=== PATIENT | female | born 1990 | race Caucasian/White ===

== ENCOUNTER 2016-10-13 02:01 | Emergency (ER) | payer OTHER, MEDICAID ==
--- NOTE | 2016-10-13 02:28 | ED Physician Chart ---
Chief Complaint/HPI - Patient Information Date Seen:: 10/13/16 Time Seen:: 02:10 Chief Complaint:: rash History of Present Illness:: THIS IS A 26 YO FEMALE WHO STATES THAT SHE HAS AN ALLERGIC RASH OVER HER BODY SHE THINKS THAT IT IS EXPOSURE FOR A NEW DOG THAT SHE BOUGHT IN TO THE HOUSE YESTERDAY. SHE DENIES SHORTNESS OF BREATH, TROUBLE SWOLLOWING. SHE DENIES NAUSEA AND VOMITING. SHE DENIES FEVER, COUGH AND CHEST CONGESTION. SHE STATES THAT THIS HAS HAPPEN BEFORE. Allergies:: Allergies Allergy/AdvReac Type Severity Reaction Status Date / Time dogs Allergy Uncoded 10/13/16 02:11 Vitals:: Vital Signs - 8 hr 10/13/16 02:05 Temp 98.3 F HR 95 RR 18 BP 123/73 O2 Sat % 100 Historian:: Patient Review:: Nurse's Note Reviewed Review of Systems - Review of Systems General/Constitutional: No fever, No chills, No weight loss, No weakness, No diaphoresis, No edema, No loss of appetite Skin: No skin lesions, Rash, No bruising Head: No headache, No light-headedness Eyes: No loss of vision, No pain, No diplopia ENT: No earache, No nasal drainage, No sore throat, No tinnitus Neck: No neck pain, No swelling, No thyromegaly, No stiffness, No mass noted Cardio Vascular: No chest pain, No palpitations, No PND, No orthopnea, No edema Pulmonary: No SOB, No cough, No sputum, No wheezing GI: No nausea, No vomiting, No diarrhea, No pain, No melena, No hematochezia, No constipation, No hematemesis G/U: No dysuria, No frequency, No hematuria Musculoskeletal: No bone or joint pain, No back pain, No muscle pain Endocrine: No polyuria, No polydipsia Psychiatric: No prior psych history, No depression, No anxiety, No suicidal ideation Hematopoietic: No bruising, No lymphadenopathy Allergic/Immuno: No urticaria, No angioedema Neurological: No syncope, No focal symptoms, No weakness, No paresthesia, No headache, No seizure, No dizziness, No confusion, No vertigo Past Medical History - Past Medical History Obtainable: Yes Past Medical History: Other (OBESE) Family History: None Social History: Non Smoker, No Alcohol, No Drug Use, Employed, Other Surgical History: None Psychiatricy History: None Medication: Reviewed Family Medical History - Family Member Mother History Unknown: Yes Grandmother History Unknown: Yes Hx Family Diabetes: Yes Physical Exam - Physical Examination General/Constitutional: Awake, Well-developed, well-nourished, Alert, No distress, GCS 15, Non-toxic appearing, Ambulatory Head: Atraumatic Eyes: Lids, conjuctiva normal, PERRL, EOMI Skin: Nl inspection, No skin lesions, No ecchymosis, Well hydrated, No lymphadenopathy Other Skin comments:: THE IS A GENERALIZED RASH OVER THE BODY BUT ESPECIALLY THE FACE. ENMT: External ears, nose nl, Nasal exam nl, Lips, teeth, gums nl Neck: Nontender, Full ROM w/o pain, No JVD, No nuchal rigidity, No bruit, No mass, No stridor Respiratory: Nl effort/Exclusion, Clear to Auscultation, No Wheeze/Rhonchi/Rales Cardio Vascular: RRR, No murmur, gallop, rubs, NL S1 S2 GI: No tenderness/rebounding/guarding, No organomegaly, No hernia, Normal BS's, Nondistended, No mass/bruits, No McBurney tenderness : No CVA tenderness Extremities: No tenderness or effusion, Full ROM, normal strength in all extremities, No edema, Normal digits & nails Neuro/Psych: Alert/oriented, DTR's symmetric, Normal sensory exam, Normal motor strength, Judgement/insight normal, Mood normal, Normal gait, No focal deficits Misc: normal gait, Normal back, No paraspinal tenderness ED Septic Shock - . Is Septic Shock (SBP<90, OR Lactate>4 mmol\L) present?: No - <6hrs of presentation: Vital Signs: Vital Signs - 8 hr 10/13/16 02:05 Temp 98.3 F HR 95 RR 18 BP 123/73 O2 Sat % 100 Reassessment (Disposition) - Reassessment Reassessment Condition:: Improved - Diagnosis Diagnosis:: ACUTE UTICARIAL RASH - Aftercare/Follow up Instructions Aftercare/Follow-Up Instructions:: Counseled pt regarding lab results/diagnosis & need follow up, Refer to Discharge Instructions, Counseled pt & family regarding lab results/diagnosis & need follow up - Patient Disposition Discharge/Transfer:: Home Condition at Disposition:: Improved ED Discharge Plan - Patient Disposition Admit/Discharge/Transfer: PT DISCHARGED HOME Condition at Disposition: Improved
== END 2016-10-13 02:40 | disposition home or self-care (01) ==
LOC: ER 02:01
DX: L50.0 Allergic urticaria (principal); J30.81 Allergic rhinitis due to animal (cat) (dog) hair and dander
CPT/HCPCS: 99283; 96372; J2930; Z7502

== ENCOUNTER 2017-07-15 15:14 | Emergency (ER) | payer MEDICAID, OTHER | END 2017-07-15 18:25 | disposition left against medical advice (07) | LOC: ER 15:14 | DX: R19.7 Diarrhea, unspecified (principal); Z91.09 Other allergy status, other than to drugs and biological substances ==

== ENCOUNTER 2018-06-15 22:41 | Emergency (ER) | payer MEDICAID, OTHER ==
--- NOTE | 2018-06-15 23:38 | ED Physician Chart ---
ED Chief Complaint/HPI - Patient Information Date Seen:: 06/15/18 Time Seen:: 23:33 Chief Complaint:: Nausea, vomiting and diarrhea History of Present Illness:: 28 yo female developed nausea, vomiting, diarrhea and epigastric abdominal pain for 12 hours right after eating a pizza. Patient also had fever up to 100.5, chills and body ache. Allergies:: Allergies Allergy/AdvReac Type Severity Reaction Status Date / Time dogs Allergy Uncoded 10/13/16 02:11 Vitals:: Vital Signs - 8 hr 06/15/18 22:45 Temp 96.8 F HR 124 RR 19 BP 118/71 O2 Sat % 96 ED Review of Systems - Review of Systems General/Constitutional: Fever, Chills Skin: No rash Head: No headache Eyes: No pain ENT: No nasal drainage Neck: No neck pain Cardio Vascular: No chest pain Pulmonary: No SOB GI: Nausea, Vomiting, Diarrhea, Pain Musculoskeletal: Muscle pain Neurological: No focal symptoms ED Past Medical History - Past Medical History Past Medical History: DM, Asthma/COPD, Other (Obesity) Social History: Non Smoker, Alcohol, No Drug Use Surgical History: Cholecystectomy, () Family Medical History - Family Member Mother History Unknown: Yes Ethnicity: Living Status: Still Living Hx Family Cancer: No Hx Family Coronary Artery Disease: No Hx Family Congestive Heart Failure: No Hx Family Hypertension: Yes Hx Family Dementia: No Hx Family HIV: No Hx Family COPD: No Hx Family Hepatitis: No Grandmother History Unknown: Yes Ethnicity: Hx Family Cancer: No Hx Family Coronary Artery Disease: No Hx Family Congestive Heart Failure: No Hx Family Hypertension: No Hx Family Stroke: No Hx Family Diabetes: Yes Hx Family Seizures: No Hx Family Dementia: No Hx Family AIDS: No Hx Family COPD: No Hx Family Hepatitis: No Hx Family Psychiatric Problems: No ED Physical Exam - Physical Examination General/Constitutional: Awake, Alert Head: Atraumatic Eyes: PERRL, EOMI Skin: No skin lesions ENMT: Nasal exam nl Neck: No nuchal rigidity Respiratory: Clear to Auscultation Cardio Vascular: RRR, No murmur, gallop, rubs, NL S1 S2 Other GI comments:: Epigastric tenderness Extremities: normal strength in all extremities Neuro/Psych: Alert/oriented ED Labs/Radiology/EKG Results - Lab Results Results: Laboratory Last Values WBC 9.7 Th/cmm (4.8-10.8) 06/15/18 23:40 RBC 4.76 Mil/cmm (3.80-5.10) 06/15/18 23:40 Hgb 14.3 gm/dL (12-16) 06/15/18 23:40 Hct 42.7 % (41.0-60) 06/15/18 23:40 MCV 89.7 fl (81-100) 06/15/18 23:40 MCH 30.0 pg (27.0-31.0) 06/15/18 23:40 MCHC Differential 33.5 pg (28.0-36.0) 06/15/18 23:40 RDW 11.4 % (11.5-20.0) L 06/15/18 23:40 Plt Count 328 Th/cmm (150-400) 06/15/18 23:40 MPV 8.6 fl 06/15/18 23:40 Neutrophils % 79.5 % (40.0-80.0) 06/15/18 23:40 Lymphocytes % 12.7 % (20.0-50.0) L 06/15/18 23:40 Monocytes % 4.6 % (2.0-10.0) 06/15/18 23:40 Eosinophils % 2.4 % (0.0-5.0) 06/15/18 23:40 Basophils % 0.8 % (0.0-2.0) 06/15/18 23:40 Sodium 134 mEq/L (136-145) L 06/15/18 23:40 Potassium 3.5 mEq/L (3.5-5.1) 06/15/18 23:40 Chloride 100 mEq/L (98-107) 06/15/18 23:40 Carbon Dioxide 22.1 mEq/L (21.0-31.0) 06/15/18 23:40 Anion Gap 15.4 (7.0-16.0) 06/15/18 23:40 BUN 12 mg/dL (7-25) 06/15/18 23:40 Creatinine 0.5 mg/dL (0.6-1.2) L 06/15/18 23:40 Est GFR ( Amer) > 60.0 ml/min (>90) 06/15/18 23:40 Est GFR (Non-Af Amer) > 60.0 ml/min 06/15/18 23:40 BUN/Creatinine Ratio 24.0 06/15/18 23:40 Glucose 209 mg/dL (70-105) H 06/15/18 23:40 Calcium 9.3 mg/dL (8.6-10.3) 06/15/18 23:40 Total Bilirubin 0.7 mg/dL (0.3-1.0) 06/15/18 23:40 AST 49 U/L (13-39) H 06/15/18 23:40 ALT 50 U/L (7-52) 06/15/18 23:40 Alkaline Phosphatase 56 U/L (34-104) 06/15/18 23:40 Total Protein 7.4 gm/dL (6.0-8.3) 06/15/18 23:40 Albumin 3.9 gm/dL (3.7-5.3) 06/15/18 23:40 Globulin 3.5 gm/dL 06/15/18 23:40 Albumin/Globulin Ratio 1.1 (1.0-1.8) 06/15/18 23:40 Lipase 16 U/L (11-82) 06/15/18 23:40 Urine Source RANDOM 06/15/18 22:55 Urine Color YELLOW 06/15/18 22:55 Urine Clarity CLEAR (CLEAR) 06/15/18 22:55 Urine pH 6.0 (4.6 - 8.0) 06/15/18 22:55 Ur Specific [place] 1.025 (1.005-1.030) 06/15/18 22:55 Urine Protein TRACE mg/dL (NEGATIVE) 06/15/18 22:55 Urine Glucose (UA) 250 mg/dL (NEGATIVE) H 06/15/18 22:55 Urine Ketones 15 mg/dL (NEGATIVE) H 06/15/18 22:55 Urine Blood NEGATIVE (NEGATIVE) 06/15/18 22:55 Urine Nitrate NEGATIVE (NEGATIVE) 06/15/18 22:55 Urine Bilirubin NEGATIVE (NEGATIVE) 06/15/18 22:55 Urine Urobilinogen 0.2 E.U./dL (0.2 - 1.0) 06/15/18 22:55 Ur Leukocyte Esterase NEGATIVE (NEGATIVE) 06/15/18 22:55 Urine RBC 0-2 /hpf (0-5) 06/15/18 22:55 Urine WBC 0-2 /hpf (0-5) 06/15/18 22:55 Ur Epithelial Cells MODERATE /lpf (FEW) 06/15/18 22:55 Urine Bacteria MODERATE /hpf (NONE SEEN) H 12 22:55 Urine Test NEGATIVE 06/15/18 22:55 ED Assessment - Assessment General Assessment: Gastroenteritis Dehydration Hyponatremia Assessment/Comments:: CBC, CMP, lipase Zofran 4mg IV Pantoprazole 40mg IV Ciprofloxacin 400mg IV NS 1L IV bolus D/c home F/u PCP or return to ER if symptoms worsen ED Septic Shock - . Is Septic Shock (SBP<90, OR Lactate>4 mmol\L) present?: No - <6hrs of presentation: Vital Signs: Vital Signs - 8 hr 06/15/18 22:45 Temp 96.8 F HR 124 RR 19 BP 118/71 O2 Sat % 96 ED Reassessment (Disposition) - Reassessment Reassessment Condition:: Improved - Aftercare/Follow up Instructions Medication Prescribed:: Ciprofloxacin 500mg PO bid #14 Zofran ODT 4mg PO q8h prn for N/V, #6 - Patient Disposition Discharge/Transfer:: Home
[2018-06-16 00:06] LABS: % BASOPHILS 0.8 % (0.0-2.0); % EOSINOPHILS 2.4 % (0.0-5.0); % LYMPHOCYTES 12.7 % (20.0-50.0); % MONOCYTES 4.6 % (2.0-10.0); % NEUTROPHILS 79.5 % (40.0-80.0); BASOPHILE ABSOLUTE 0.1 Th/cumm (0-0.2); EOSINOPHILE ABSOLUTE 0.2 Th/cmm (0.1-0.4); HEMATOCRIT 42.7 % (41.0-60); HEMOGLOBIN 14.3 gm/dL (12-16); LYMPHOCYTE ABSOLUTE 1.2 Th/cmm (1.5-3.0); MEAN CELL VOLUME 89.7 fl (81-100); MEAN CORPUSCULAR HGB CONC 33.5 pg (28.0-36.0); MEAN PLATELET VOLUME 8.6 fl; MONOCYTE ABSOLUTE 0.4 Th/cmm (0.3-1.0); NEUTROPHILE ABSOLUTE 7.8 Th/cmm (1.8-8.0); PLATELET COUNT 328 Th/cmm (150-400); RED BLOOD COUNT 4.76 Mil/cmm (3.80-5.10); RED CELL DISTRIBUTION WIDTH 11.4 % (11.5-20.0); WHITE BLOOD COUNT 9.7 Th/cmm (4.8-10.8)
[2018-06-16 00:15] LABS: URINE SOURCE RANDOM
[2018-06-16 00:18] LABS: URINE BILIRUBIN NEGATIVE (NEGATIVE); URINE BLOOD NEGATIVE (NEGATIVE); URINE GLUCOSE (UA) 250 mg/dL (NEGATIVE); URINE KETONE 15 mg/dL (NEGATIVE); URINE LEUKOCYTE ESTERASE NEGATIVE (NEGATIVE); URINE MICROSCOPIC INDICATED? YES; URINE NITRATE NEGATIVE (NEGATIVE); URINE PROTEIN TRACE mg/dL (NEGATIVE); URINE UROBILINOGEN 0.2 E.U./dL (0.2 - 1.0)
[2018-06-16 00:19] LABS: ALB/GLOB RATIO 1.1 (1.0-1.8); ALBUMIN 3.9 gm/dL (3.7-5.3); ALKALINE PHOSPHATASE 56 U/L (34-104); ANION GAP 15.4 (7.0-16.0); BILIRUBIN,TOTAL 0.7 mg/dL (0.3-1.0); BUN - UREA NITROGEN 12 mg/dL (7-25); CALCIUM SERUM 9.3 mg/dL (8.6-10.3); CARBON DIOXIDE 22.1 mEq/L (21.0-31.0); CHLORIDE 100 mEq/L (98-107); CREATININE - SERUM 0.5 mg/dL (0.6-1.2); GFR AFRICAN-AMERICAN > 60.0 ml/min (>90); GFR NON AFRICAN-AMERICAN > 60.0 ml/min; GLUCOSE 209 mg/dL (70-105); LIPASE 16 U/L (11-82); POTASSIUM SERUM 3.5 mEq/L (3.5-5.1); SGOT 49 U/L (13-39); SGPT/ALT 50 U/L (7-52); SODIUM SERUM 134 mEq/L (136-145); TOTAL PROTEIN,SERUM 7.4 gm/dL (6.0-8.3)
[2018-06-16 00:25] LABS: URINE BACTERIA MODERATE /hpf (NONE SEEN); URINE CLARITY CLEAR (CLEAR); URINE COLOR YELLOW; URINE EPITHELIAL CELLS MODERATE /lpf (FEW); URINE RBC 0-2 /hpf (0-5); URINE WBC 0-2 /hpf (0-5)
[2018-06-16] MEDS ORDERED: Sodium Chloride 0.9% 1,000 ML IV ONE (00:37)
[2018-06-16] MEDS ORDERED: Ciprofloxacin 400mg Premix PB 400 MG/200 ML BAG IV ONE (00:37)
[2018-06-16] MEDS ORDERED: [UNRECOGNIZED DRUG - OTHER] IV ONE (00:49)
[2018-06-16] MEDS ORDERED: CIPROFLOXACIN 200 MG IV ONE (00:49)
== END 2018-06-16 02:20 | disposition home or self-care (01) ==
LOC: ER 22:41
DX: K52.9 Noninfective gastroenteritis and colitis, unspecified (principal); E87.1 Hypo-osmolality and hyponatremia; E86.0 Dehydration; J44.9 Chronic obstructive pulmonary disease, unspecified; E11.9 Type 2 diabetes mellitus without complications; Z90.49 Acquired absence of other specified parts of digestive tract; Z98.890 Other specified postprocedural states; Z91.048 Other nonmedicinal substance allergy status
CPT/HCPCS: 99283; 96365; 96375; 36415; 85025; 87086; 81001; 83036; 81025; 83690; 80053; C9113; J2405; J0744; Z7502

== ENCOUNTER 2018-09-15 08:51 | Emergency (ER) | payer MEDICAID ==
--- NOTE | 2018-10-21 15:05 | ER Physician Documentation ---
DATE OF SERVICE: 09/15/2018 HISTORY OF PRESENT ILLNESS: This is a 28-year-old female patient, presents to the Emergency Room with onset x 2 days of fever, cough and congestion and sore throat. The patient denies trauma, chest pain, abdominal pain, nausea, vomiting or diarrhea. The patient is eating and urinating well. PAST MEDICAL HISTORY: Diabetes mellitus, asthma, COPD. MEDICATIONS: Per nurse's notes. ALLERGIES: No known drug allergies. REVIEW OF SYSTEMS: Otherwise, essentially noncontributory. PHYSICAL EXAMINATION: GENERAL: The patient is in no acute distress, alert and oriented x 3. VITAL SIGNS: Afebrile. Vital signs stable. HEENT: Revealed positive nasal congestion. Pharynx is injected without exudates or abscesses. No foreign bodies, no airway obstruction. NECK: Supple. No meningeal signs. No bruits. No cervical tenderness. CARDIOVASCULAR: Regular rate and rhythm. LUNGS: Clear with good breath sounds bilaterally. ABDOMEN: Soft, nontender, normoactive bowel sounds, pulsatile mass. EXTREMITIES: No edema, clubbing or cyanosis. NEUROLOGIC: No focal signs. HOSPITAL COURSE: The patient tolerated oral fluids well and was asymptomatic upon discharge. The patient is discharged with prescription for Augmentin 875 mg p.o. twice a day for 10 days, Tylenol 500 mg 4 times a day p.r.n. fever. Salt water gargles, cool mist vaporizer. Aftercare instructions given for all the above diagnosis. The patient is to have followup care with primary physician when it was needed, refer to a brush head maker as soon as possible. Otherwise, follow up with her primary physician when it is needed. Return to Emergency Room as needed, of concern. FINAL DIAGNOSES: Cough, bronchitis, asthma, asthmatic bronchitis, congestion, sinusitis, sore throat, pharyngitis, fever and upper respiratory tract infection. JOB# [id number]
== END 2018-09-15 09:30 | disposition home or self-care (01) ==
LOC: ER 08:51
DX: J45.909 Unspecified asthma, uncomplicated (principal); J32.9 Chronic sinusitis, unspecified; J06.9 Acute upper respiratory infection, unspecified; E11.9 Type 2 diabetes mellitus without complications
CPT/HCPCS: 82948-90; Z7502